=== PATIENT | female | born 1980 | race Caucasian/White ===

== ENCOUNTER 2016-09-19 17:54 | Emergency (ER) | payer BC ==
[2016-09-19] MEDS ORDERED: LIDOCAINE HCL 2% JELLY 1 APP/5 ML TUBE ONE (18:19)
--- NOTE | 2016-09-19 18:51 | RADIOLOGY REPORT ---
HISTORY: Acute right knee pain. TECHNIQUE: 3 views of the right knee. COMPARISON: None. FINDINGS: No acute fracture, dislocation or bone destruction is identified. The joint spaces are unremarkable. IMPRESSION: No acute fracture identified. Final Electronic Signature: This report was electronically signed by Oscar Young MD on 09/19/2016 6:48 PM. [email or web address] /
--- NOTE | 2016-09-19 18:51 | RADIOLOGY REPORT ---
HISTORY: Acute right lower leg pain after fall. TECHNIQUE: AP and lateral views of the right tibia/fibula. COMPARISON: None. FINDINGS: No acute fracture, dislocation or bone destruction is identified. IMPRESSION: No acute fracture identified. Final Electronic Signature: This report was electronically signed by Oscar Young MD on 09/19/2016 6:49 PM. [email or web address] /
[2016-09-19] MEDS ORDERED: KETOROLAC TROMETHAMINE 60 MG/2 ML VIAL ONE (18:54)
--- NOTE | 2016-09-19 19:32 | ER NURSING DOCUMENTATION ---
Nurse's Notes [facility] Name:Alex Reed Age:36 yrs Sex:Female :1980 Arrival Date:09/19/2016 Time:17:53 Bed6 Private MD: Diagnosis:Lower Leg Contusion;Lower Limb Abrasion w/o Infection Presentation: 09/19 17:57 Presenting complaint: Patient states: Pt was bucked off horse, injuring her right knee tg and calf. Pt was then trying to stand up after the fall, and passed out. Friends lowered her to the ground. Transition of care: patient was not received from another setting of care. 17:57 Method Of Arrival: Private Vehicle tg 17:57 Acuity: PAU 3 tg Triage Assessment: 17:59 Compartment Syndrome symptoms:. General: Appears in no apparent distress, Behavior is tg cooperative. Pain: Complains of pain in right calf, right knee, right wood, left knee and left wood. Neuro: Level of Consciousness is awake, alert. Cardiovascular: Capillary refill < 3 seconds. Respiratory: Respiratory effort is even, unlabored. Derm: Skin is pink, warm & dry. Musculoskeletal:. Injury Description: Abrasion sustained to right wood and knee. Historical: - Allergies: No known drug Allergies; - Home Meds: 1. inhaler - PMHx: ASTHMA; - PSHx: None; - Tetanus: < 10 years. - Ebola Screening: : Patient negative for fever greater than or equal to 101.5 degrees Fahrenheit, and additional compatible Ebola Virus Disease symptoms. Patient denies exposure to infectious person. Patient denies travel to an Ebola-affected area in the 21 days before illness onset. No symptoms or risks identified at this time. . - Immunization history: Flu Vaccine unknown. - Social history: Smoking status: Patient states was never smoker of tobacco. Screenin:03 Infectious Disease Risk Unable to Obtain. Abuse screen: Denies threats or abuse. Denies tg injuries from another. Nutritional screening: No deficits noted. Vital Signs: 18:01 BP 113 / 72; Pulse 79; Resp 16; Pulse Ox 92% on R/A; Weight 61.23 kg (R); Height 5 ft. tg 6 in. (167.64 cm) (R); Pain 10/10; 19:30 Pain 3/10; tg 18:01 Body Mass Index 21.79 (61.23 kg, 167.64 cm) tg [place] Coma Score: 18:15 Eye Response: spontaneous(4). Verbal Response: oriented(5). Motor Response: obeys cd commands(6). Total: 15. ED Course: 17:53 Patient arrived in ED. em3 17:57 Laci Diaz RN is Primary Nurse. tg 17:58 Triage completed. tg 18:02 Arm band placed on. tg 18:03 Affected limb iced. tg 18:08 Gilson Guillen MD is Attending Physician. cd 18:37 Port Xray Completed. dnn 19:11 Dressings: applied to right leg telfa. Crutch training done. Wound care to abrasion, arc located on right leg was cleaned with soap and water, Patient tolerated well. 19:31 Valuables Remains with patient. tg Administered Medications: 18:08 Drug: Lidocaine Ointment (2%) 1 application; Route: Topical; Site: affected area; tg 18:51 Follow up: Response: No adverse reaction; Pain is decreased tg 18:50 Drug: Toradol 60 mg; Route: IM; Site: right gluteus; tg 19:29 Follow up: Response: Pain is decreased tg 19:29 Drug: HYDROcodone-acetaminophen (5mg/325 mg) 1-2 tabs 1 tabs; Route: PO; tg 19:30 Follow up: Response: Pharmacy closed - take home med pack tg Outcome: 19:17 Discharge ordered by . cd 19:30 Discharged to home ambulatory, with crutches, with friend. tg 19:30 Condition: stable 19:30 Discharge Assessment: Patient awake and alert. 19:30 Instructed on discharge instructions, follow up and referral plans. medication usage. 19:32 Patient left the ED. tg Signatures: Laci Diaz RN RN tg Gilson Guillen MD MD cd Norman, David dnJarrod Robb em3 Bruce, Lexii, Reg Reg arc
--- NOTE | 2016-09-19 19:32 | ER PHYSICIAN DOCUMENTATION ---
Physician Documentation [facility] Name:Alex Reed Age:36 yrs Sex:Female :1980 Arrival Date:09/19/2016 Time:17:53 Bed6 Private MD: Gilson Serrano Disposition: 09/19/16 19:17 Discharged to Home/Self Care. Impression: Lower Leg Contusion, Lower Limb Abrasion w/o Infection. - Condition is Good. - Discharge Instructions: ABRASION, CONTUSION, Lower Extremity, HEMATOMA. - Medical Reconciliation form form. - Follow up: Private Physician; When: 4- 6 days; Reason: Recheck today's complaints, Continuance of care. - Problem is new. - Symptoms have improved. - Notes: Apply Bacitracin Ointment to your abrasions every day...then once healed use SPF-50 Sunscreen for 6 months to prevent scarring. Elevate your right leg above your heart for two days....applying ice packs. Use crutches for 3 - 4 days to take weight off the right leg. Take Ibuprofen 600mg by mouth every 6 hours with food for the next 3 - 4 days. (Next dose 11:00 PM) Take Vicodin 1 tab by mouth every 4 - 6 hours with food for moderate pain. Return to the closest ER if severe, excruciating pain, numbness to foot or any problems arise. Follow up with your doctor in 5 - 7 days for re-evaluation. 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 18:00 The patient presents with an abrasion, a contusion, pain, that is acute. The complaints cd affect the right calf and right knee. Context: The problem was sustained outdoors, resulted from the patient falling, off a horse while the horse was standing still, the patient can partially bear weight, must have assistance. Onset: The symptom(s)/episode began/occurred acutely, just prior to arrival, Paramedics were called to the scene...but found her stable. The patient refused transport and was transported to the ED by private vehicle. Right after the fall and injury, the patient tried standing up and past out from the pain. she had no helmet on, but did not sustain a head, neck, chest, spine, abdominal or other extremity injuries. She denies numbness, tingling, weakness in the RLE.. Modifying factors: The symptoms are alleviated by remaining still, ice and a Toradol shot in the ED. Associated signs and symptoms: Pertinent positives: calf tenderness, Pertinent negatives nausea, numbness, swelling, tingling, vomiting, warmth, weakness. Treatment prior to arrival includes: no previous treatment. Severity of symptoms: At their worst the symptoms were moderate, in the emergency department the symptoms are unchanged. The patient has not experienced similar symptoms in the past. Historical: - Allergies: No known drug Allergies; - Home Meds: 1. inhaler - PMHx: ASTHMA; - PSHx: None; - Tetanus: < 10 years. - Ebola Screening: : Patient negative for fever greater than or equal to 101.5 degrees Fahrenheit, and additional compatible Ebola Virus Disease symptoms. Patient denies exposure to infectious person. Patient denies travel to an Ebola-affected area in the 21 days before illness onset. No symptoms or risks identified at this time. . - Immunization history: Flu Vaccine unknown. - Social history: Smoking status: Patient states was never smoker of tobacco. ROS: 18:00 ENT: Negative for injury, pain, epistaxis and discharge. cd Neck: Negative for injury, pain, stiffness and swelling. Cardiovascular: Negative for chest pain, palpitations, edema and pleuritic pain. Respiratory: Negative for shortness of breath, dyspnea on exertion, cough, sputum production, wheezing, hemoptysis and pleuritic chest pain. Abdomen/GI: Negative for abdominal pain, nausea, vomiting, diarrhea, constipation, distension, melena, hematochezia and hematemesis. Back: Negative for injury, pain or muscle spasms. : Negative for injury, bleeding, discharge, dysuria, frequency, urgency and swelling. 18:00 Neuro: Negative for headache, weakness, numbness, tingling, and seizure. cd 18:00 Constitutional: Positive for poor PO intake. 18:00 MS/extremity: Positive for abrasion, contusion, decreased range of motion, tenderness, of the right knee and right calf, Negative for deformity, ecchymosis, erythema, laceration, paresthesias, tingling. 18:00 Skin: Positive for abrasion(s), of the right knee. Exam: Head/Face: Normocephalic, atraumatic. Eyes: Pupils equal round and reactive to light, extra-ocular motions intact. Lids and lashes normal. Conjunctiva and sclera are non-icteric and not injected. Cornea within normal limits. Periorbital areas with no swelling, redness, or edema. ENT: Nares patent. No nasal discharge, no septal abnormalities noted. Tympanic membranes are normal and external auditory canals are clear. Oropharynx with no redness, swelling, or masses, exudates, or evidence of obstruction, uvula midline. Mucous membranes moist. Neck: Trachea midline, no thyromegaly or masses palpated, and no cervical lymphadenopathy. Supple, full range of motion without nuchal rigidity, or vertebral point tenderness. No Meningismus. Chest/axilla: Normal chest wall appearance and motion. Nontender with no deformity. No lesions are appreciated. Cardiovascular: Regular rate and rhythm with a normal S1 and S2. No gallops, murmurs, or rubs. Normal PMI, no JVD. No pulse deficits. Respiratory: Lungs have equal breath sounds bilaterally, clear to auscultation and percussion. No rales, rhonchi or wheezes noted. No increased work of breathing, no retractions or nasal flaring. Abdomen/GI: Soft, non-tender, with normal bowel sounds. No distension or tympany. No guarding or rebound. No evidence of tenderness throughout. Back: No spinal tenderness. No costovertebral tenderness. Full range of motion. 18:15 Neuro: Awake and alert, GCS 15, oriented to person, place, time, and situation. cd Cranial nerves II-XII grossly intact. Motor strength 5/5 in all extremities. Sensory grossly intact. Cerebellar exam normal. Normal gait. 18:15 Constitutional: The patient appears alert, awake, non-diaphoretic, non-toxic, well developed, well nourished, anxious, in obvious distress, moderately distressed. 18:15 Musculoskeletal/extremity: Extremities: grossly normal except: noted in the right knee and right proximal calf: abrasion, contusion, tenderness, ROM: limited active range of motion due to pain, in the right leg, Circulation is intact in all extremities. Pulses: are normal with no appreciated deficits, noted to be 4+ in the right popliteal artery, right posterior tibial artery and right dorsalis pedis artery, Sensation intact. Compartment Syndrome exam of affected extremity: is normal. no numbness, no tingling, no sensation deficit, no palor, no weak pulses, Joints: All joints are normal except the right knee displays tenderness. 18:15 Skin: Appearance: normal except for affected area, injury, abrasion(s), small abrasion noted, of the right knee. Vital Signs: 18:01 BP 113 / 72; Pulse 79; Resp 16; Pulse Ox 92% on R/A; Weight 61.23 kg (R); Height 5 ft. tg 6 in. (167.64 cm) (R); Pain 10/10; 19:30 Pain 3/10; tg 18:01 Body Mass Index 21.79 (61.23 kg, 167.64 cm) tg [place] Coma Score: 18:15 Eye Response: spontaneous(4). Verbal Response: oriented(5). Motor Response: obeys cd commands(6). Total: 15. MDM: 18:08 Patient medically screened. cd 18:10 Differential diagnosis: closed fracture, contusion, abrasion, Gastrocnemius Tear, cd hematoma, Compartment Syndrome. 19:05 Data reviewed: vital signs, nurses notes, old medical records, radiologic studies, and cd as a result, I will discharge patient, prescribe pain medication, Toradol. Data interpreted: Pulse oximetry: on room air is 92 %. Interpretation: normal. 19:10 Counseling: I had a detailed discussion with the patient and/or guardian regarding: the cd historical points, exam findings, and any diagnostic results supporting the discharge/admit diagnosis, radiology results, the need for outpatient follow up, for a recheck, with the patient's primary care provider, to return to the emergency department if symptoms worsen or persist or if there are any questions or concerns that arise at home. Response to treatment: the patient's symptoms have markedly improved after treatment, the patient's condition has returned to base line, and as a result, I will discharge patient. 09/19 18:52 Order name: KNEE; [address] [place] [id number]; Complete Time: 19:16 EDMS 09/19 19:16 Interpretation: Normal. cd 09/19 18:52 Order name: TIBIA/FIBULA; 2V [place] [id number]; Complete Time: 19:16 EDMS 09/19 19:16 Interpretation: Normal. cd 09/19 18:04 Order name: Ice Packs; Complete Time: 18:04 tg 09/19 18:51 Order name: Wound Care; Complete Time: 18:51 tg 09/19 19:29 Order name: ORTHO: Crutches & Training; Complete Time: 19:30 tg 09/19 19:29 Order name: ORTHO: 6" Rodrick Wrap; Complete Time: 19:30 tg Dispensed Medications: 18:08 Drug: Lidocaine Ointment (2%) 1 application; Route: Topical; Site: affected area; tg 18:51 Follow up: Response: No adverse reaction; Pain is decreased tg 18:50 Drug: Toradol 60 mg; Route: IM; Site: right gluteus; tg 19:29 Follow up: Response: Pain is decreased tg 19:29 Drug: HYDROcodone-acetaminophen (5mg/325 mg) 1-2 tabs 1 tabs; Route: PO; tg 19:30 Follow up: Response: Pharmacy closed - take home med pack tg Signatures: Laci Diaz RN RN tg Gilson Guillen MD MD
== END 2016-09-19 19:32 | disposition home or self-care (01) ==
LOC: ER 17:54
DX: S80.11XA Contusion of right lower leg, initial encounter (principal); S80.811A Abrasion, right lower leg, initial encounter; S80.01XA Contusion of right knee, initial encounter; S80.211A Abrasion, right knee, initial encounter; V80.010A Animal-rider injured by fall from or being thrown from horse in noncollision accident, initial encounter; Y92.838 Other recreation area as the place of occurrence of the external cause; Y93.52 Activity, horseback riding
CPT/HCPCS: 96372; 99284; J1885